=== PATIENT | male | born 1935 | race Caucasian/White ===

== ENCOUNTER 2016-03-19 12:12 | Inpatient (IN) | payer OTHER ==
[~2016-03-19] VITALS: Ht 172.7 cm; Wt 50.9 kg
[~2016-03-19 12:12] MED LIST: CELEBREX200 MG GT; DIFLUCAN 440 MG/1 ML GT; DIOVAN HCT 11 TABLET GT; DOCU LIQUI50 MG/5 ML GT; FLUCONAZOLE100 MG GT; FLUCONAZOLE100 MG PO; HYDROCHLOROTH12.5 M3 GT; KEFLEX250 MG/5 M PO; KEFLEX500 MG PO; NEXIUM40 MG GT; PLAVIX75 MG GT; PREDNISONE1 MG/ML GT; SYMBICORT60 INHALAT IH; VENTOLIN HFA18 GM IH
[2016-03-19 13:31] LABS: EOSINOPHIL (%) 0.5 % (0-5); EOSINOPHIL COUNT 0.1 K/uL (0-0.3); HEMATOCRIT 31.7 % (38.0-50.0); IMMATURE GRANULOCYTE (%) 0.4 % (0.0-0.7); IMMATURE GRANULOCYTE COUNT 0.7 K/uL; LYMPHOCYTE COUNT 0.3 K/uL (1.0-2.8); MCH 30.1 PG (29.0-34.0); MCHC 33.8 G/DL (30.0-36.0); MCV 89.3 FL (86-99); MEAN PLAT.VOLUME 9.2 uM^3 (9.0-12.4); MONOCYTE (%) 3.4 % (3-12); MONOCYTE COUNT 0.6 K/uL (0-0.8); NEUTROPHIL COUNT 16.1 K/uL (1.8-6.4); PLATELET COUNT 247 K/uL (156-360); RBC DIS.WIDTH-SD 50.5 % (39-53); RED BLOOD COUNT 3.55 M/uL (4.00-5.50); WHITE BLOOD COUNT 17.2 K/uL (4.1-10.2)
[2016-03-19 13:41] LABS: CHLORIDE 101 mEq/L (99-109); POTASSIUM 4.5 mEq/L (3.7-5.4); SODIUM 136 mEq/L (136-147)
[2016-03-19 13:43] LABS: GLUCOSE 99 mg/dL (70-99)
[2016-03-19 13:45] LABS: ANION GAP 10 MEQ/L (2-14)
[2016-03-19 13:47] LABS: ALKALINE PHOSPHATASE 78 IU/L (3-129); GFR ESTIMATE (CALCULATED) > 59 mL/min/
[2016-03-19 13:51] LABS: UREA NITROGEN (BUN) 52 mg/dL (9-23)
[2016-03-19 14:08] LABS: TOTAL BILIRUBIN 1.3 mg/dL (0.0-1.0)
[2016-03-19 17:30] VITALS: BP 106/58
[2016-03-19 19:30] VITALS: BP 138/58
[2016-03-19 23:32] VITALS: BP 99/53
[2016-03-20 01:28] LABS: METH RESISTANT S AUREUS PCR POSITIVE (NEGATIVE)
[2016-03-20 01:31] LABS: PROBE CHECK PASS
[2016-03-20 03:35] VITALS: BP 98/52
[2016-03-20 07:01] VITALS: BP 98/58
[2016-03-20 07:12] LABS: HEMATOCRIT 29.4 % (38.0-50.0); MCH 30.1 PG (29.0-34.0); MCV 88.6 FL (86-99); PLATELET COUNT 202 K/uL (156-360); RBC DIS.WIDTH-CV 16.2 % (11.8-14.6); RBC DIS.WIDTH-SD 51.5 % (39-53); RED BLOOD COUNT 3.32 M/uL (4.00-5.50)
[2016-03-20 07:13] LABS: WHITE BLOOD COUNT 9.3 K/uL (4.1-10.2)
[2016-03-20 12:29] VITALS: BP 108/55
[2016-03-20 15:54] VITALS: BP 115/54
[2016-03-20 19:40] VITALS: BP 108/53
[2016-03-20 23:05] VITALS: BP 112/56
[2016-03-21 03:10] VITALS: BP 111/56
[2016-03-21 06:43] LABS: HEMATOCRIT 31.5 % (38.0-50.0); MCH 29.7 PG (29.0-34.0); MEAN PLAT.VOLUME 10.3 uM^3 (9.0-12.4); PLATELET COUNT 219 K/uL (156-360); RBC DIS.WIDTH-CV 16.4 % (11.8-14.6); RBC DIS.WIDTH-SD 53.9 % (39-53); WHITE BLOOD COUNT 11.4 K/uL (4.1-10.2)
[2016-03-21 06:59] LABS: EOSINOPHIL (%) 0.4 % (0-5); IMMATURE GRANULOCYTE (%) 0.4 % (0.0-0.7); IMMATURE GRANULOCYTE COUNT 0.1 K/uL; LYMPHOCYTE COUNT 0.4 K/uL (1.0-2.8); MONOCYTE COUNT 0.7 K/uL (0-0.8); NEUTROPHIL (%) 89.8 % (45-76); NEUTROPHIL COUNT 10.2 K/uL (1.8-6.4)
[2016-03-21 07:21] LABS: ANION GAP 10 MEQ/L (2-14); CHLORIDE 102 MEQ/L (99-109); GFR ESTIMATE (CALCULATED) > 59 mL/min/; GLUCOSE 93 mg/dL (70-99); POTASSIUM 4.4 MEQ/L (3.7-5.4); SAMPLE HEMOLYSIS CHECK 0; SAMPLE ICTERIC CHECK 0; SAMPLE LIPEMIA CHECK 0; SODIUM 139 MEQ/L (136-147); UREA NITROGEN (BUN) 37 mg/dL (9-23)
[2016-03-21 07:30] VITALS: BP 116/52
[2016-03-21 08:03] LABS: INTERNAL CONTROL VALID? YES
[2016-03-21 12:33] VITALS: BP 112/48
[2016-03-21 16:48] VITALS: BP 122/58
[2016-03-21 21:30] VITALS: BP 112/48
[2016-03-22] VITALS (8 sets, daily range): BP systolic 124–143; BP diastolic 54–67
[2016-03-23 04:16] VITALS: BP 141/70
[2016-03-23 04:57] LABS: HEMATOCRIT 36.2 % (38.0-50.0); MCH 30.5 PG (29.0-34.0); MCV 89.8 FL (86-99); MEAN PLAT.VOLUME 9.7 uM^3 (9.0-12.4); PLATELET COUNT 173 K/uL (156-360); RBC DIS.WIDTH-CV 16.1 % (11.8-14.6); RBC DIS.WIDTH-SD 51.7 % (39-53); RED BLOOD COUNT 4.03 M/uL (4.00-5.50); WHITE BLOOD COUNT 14.2 K/uL (4.1-10.2)
[2016-03-23 04:58] LABS: EOSINOPHIL (%) 0.4 % (0-5); EOSINOPHIL COUNT 0.1 K/uL (0-0.3); IMMATURE GRANULOCYTE (%) 0.5 % (0.0-0.7); IMMATURE GRANULOCYTE COUNT 0.7 K/uL; LYMPHOCYTE COUNT 0.6 K/uL (1.0-2.8); MONOCYTE (%) 2.8 % (3-12); MONOCYTE COUNT 0.4 K/uL (0-0.8); NEUTROPHIL COUNT 13.1 K/uL (1.8-6.4)
[2016-03-23 05:06] LABS: CHLORIDE 98 mEq/L (99-109); POTASSIUM 4.5 mEq/L (3.7-5.4)
[2016-03-23 05:08] LABS: GLUCOSE 135 mg/dL (70-99)
[2016-03-23 05:09] LABS: ANION GAP 6 MEQ/L (2-14)
[2016-03-23 05:10] LABS: SODIUM 132 mEq/L (136-147)
[2016-03-23 05:11] LABS: ALKALINE PHOSPHATASE 80 IU/L (3-129)
[2016-03-23 05:12] LABS: GFR ESTIMATE (CALCULATED) > 59 mL/min/
[2016-03-23 05:13] LABS: UREA NITROGEN (BUN) 25 mg/dL (9-23)
[2016-03-23 08:29] VITALS: BP 130/58
[2016-03-23 09:01] LABS: ADD MIUA? NO; BILIRUBIN NEGATIVE; BLOOD NEGATIVE; COLOR YELLOW ((YELLOW)); GLUCOSE (STRIP) NEGATIVE; KETONES NEGATIVE; LEUKOCYTES NEGATIVE; NITRITE NEGATIVE; PH, URINE 7.5 (5-8); PROTEIN (STRIP) TRACE; SPECIFIC GRAVITY 1.014 (1.000-1.030)
[2016-03-23 09:07] LABS: UCUL ADDED? NO
[2016-03-23 12:10] VITALS: BP 148/67
[2016-03-23 16:19] VITALS: BP 111/53
[2016-03-24] VITALS (7 sets, daily range): BP systolic 94–179; BP diastolic 53–74
[2016-03-24 06:27] LABS: EOSINOPHIL (%) 0.5 % (0-5); EOSINOPHIL COUNT 0.1 K/uL (0-0.3); HEMATOCRIT 35.8 % (38.0-50.0); IMMATURE GRANULOCYTE (%) 0.7 % (0.0-0.7); IMMATURE GRANULOCYTE COUNT 0.1 K/uL; LYMPHOCYTE COUNT 0.5 K/uL (1.0-2.8); MCH 29.7 PG (29.0-34.0); MCHC 33.2 G/DL (30.0-36.0); MCV 89.3 FL (86-99); MEAN PLAT.VOLUME 10.8 uM^3 (9.0-12.4); MONOCYTE (%) 4.6 % (3-12); MONOCYTE COUNT 0.7 K/uL (0-0.8); NEUTROPHIL (%) 90.5 % (45-76); NEUTROPHIL COUNT 13.2 K/uL (1.8-6.4); PLATELET COUNT 153 K/uL (156-360); RBC DIS.WIDTH-CV 15.9 % (11.8-14.6); RBC DIS.WIDTH-SD 51.9 % (39-53); RED BLOOD COUNT 4.01 M/uL (4.00-5.50); WHITE BLOOD COUNT 14.6 K/uL (4.1-10.2)
[2016-03-24 07:02] LABS: ALKALINE PHOSPHATASE 84 IU/L (3-129); ANION GAP 11 MEQ/L (2-14); CHLORIDE 96 MEQ/L (99-109); GFR ESTIMATE (CALCULATED) > 59 mL/min/; GLUCOSE 86 mg/dL (70-99); POTASSIUM 4.4 MEQ/L (3.7-5.4); SAMPLE HEMOLYSIS CHECK 0; SAMPLE ICTERIC CHECK 0; SAMPLE LIPEMIA CHECK 0; SODIUM 135 MEQ/L (136-147); TOTAL BILIRUBIN 0.9 MG/DL (0.0-1.0); UREA NITROGEN (BUN) 26 mg/dL (9-23)
[2016-03-25 00:34] VITALS: BP 117/56
[2016-03-25 05:33] LABS: EOSINOPHIL (%) 0.6 % (0-5); EOSINOPHIL COUNT 0.1 K/uL (0-0.3); HEMATOCRIT 33.1 % (38.0-50.0); IMMATURE GRANULOCYTE (%) 0.5 % (0.0-0.7); IMMATURE GRANULOCYTE COUNT 0.1 K/uL; LYMPHOCYTE COUNT 0.8 K/uL (1.0-2.8); MCH 30.3 PG (29.0-34.0); MCHC 33.8 G/DL (30.0-36.0); MCV 89.5 FL (86-99); MEAN PLAT.VOLUME 10.9 uM^3 (9.0-12.4); MONOCYTE (%) 4.6 % (3-12); MONOCYTE COUNT 0.5 K/uL (0-0.8); NEUTROPHIL (%) 87.1 % (45-76); NEUTROPHIL COUNT 9.6 K/uL (1.8-6.4); PLATELET COUNT 150 K/uL (156-360); RBC DIS.WIDTH-CV 15.9 % (11.8-14.6); RBC DIS.WIDTH-SD 52.1 % (39-53)
[2016-03-25 05:59] LABS: ALKALINE PHOSPHATASE 83 IU/L (3-129); ANION GAP 7 MEQ/L (2-14); CHLORIDE 95 MEQ/L (99-109); GFR ESTIMATE (CALCULATED) > 59 mL/min/; GLUCOSE 80 mg/dL (70-99); POTASSIUM 4.6 MEQ/L (3.7-5.4); SAMPLE HEMOLYSIS CHECK 0; SAMPLE ICTERIC CHECK 0; SAMPLE LIPEMIA CHECK 0; SODIUM 131 MEQ/L (136-147); TOTAL BILIRUBIN 0.9 MG/DL (0.0-1.0); UREA NITROGEN (BUN) 26 mg/dL (9-23)
[2016-03-25 07:49] VITALS: BP 112/53
[2016-03-25 16:34] VITALS: BP 109/55
[2016-03-25 23:42] VITALS: BP 152/67
[2016-03-26 07:49] VITALS: BP 128/60
[2016-03-26 08:58] LABS: HEMATOCRIT 35.9 % (38.0-50.0); MCH 29.7 PG (29.0-34.0); MCHC 32.9 G/DL (30.0-36.0); MCV 90.4 FL (86-99); MEAN PLAT.VOLUME 10.7 uM^3 (9.0-12.4); PLATELET COUNT 162 K/uL (156-360); RBC DIS.WIDTH-CV 15.9 % (11.8-14.6); RBC DIS.WIDTH-SD 53.1 % (39-53); RED BLOOD COUNT 3.97 M/uL (4.00-5.50); WHITE BLOOD COUNT 10.9 K/uL (4.1-10.2)
[2016-03-26 09:17] LABS: ANION GAP 7 MEQ/L (2-14); CHLORIDE 97 MEQ/L (99-109); GFR ESTIMATE (CALCULATED) > 59 mL/min/; POTASSIUM 4.4 MEQ/L (3.7-5.4); SAMPLE HEMOLYSIS CHECK 0; SAMPLE ICTERIC CHECK 0; SAMPLE LIPEMIA CHECK 0; SODIUM 136 MEQ/L (136-147); UREA NITROGEN (BUN) 25 mg/dL (9-23)
[2016-03-26 09:24] LABS: GLUCOSE 108 mg/dL (70-99)
[2016-03-26 16:05] VITALS: BP 102/52
[2016-03-26 17:32] LABS: BASE EXCESS 9.2 mEq/L (-3 to +3); BICARBONATE 32.6 mEq/L (22-26); CARBOXY HGB 2.2 % (0-5); COMMENTS - BLOOD GASES C+; METHEMOGLOBIN 1.4 % (0-1.5); O2 FLOW 10 L/MIN; PCO2 39 mm Hg (35-45); PO2 82 mm Hg (80-100); SITE RR; pH 7.53 (7.35-7.45)
[2016-03-26 17:33] LABS: DEVICE CAM; FI02 40 %; TOTAL RESP RATE 22 resp/min
[2016-03-26 23:40] VITALS: BP 127/59
[2016-03-27 07:03] LABS: HEMATOCRIT 29.9 % (38.0-50.0); MCH 29.7 PG (29.0-34.0); MCHC 32.8 G/DL (30.0-36.0); MCV 90.6 FL (86-99); MEAN PLAT.VOLUME 10.3 uM^3 (9.0-12.4); PLATELET COUNT 149 K/uL (156-360); RBC DIS.WIDTH-CV 15.7 % (11.8-14.6); RBC DIS.WIDTH-SD 52.3 % (39-53); WHITE BLOOD COUNT 8.9 K/uL (4.1-10.2)
[2016-03-27 07:15] LABS: ANION GAP 5 MEQ/L (2-14); CHLORIDE 97 MEQ/L (99-109); GFR ESTIMATE (CALCULATED) > 59 mL/min/; GLUCOSE 101 mg/dL (70-99); SAMPLE HEMOLYSIS CHECK 0; SAMPLE ICTERIC CHECK 0; SAMPLE LIPEMIA CHECK 0; SODIUM 133 MEQ/L (136-147); UREA NITROGEN (BUN) 24 mg/dL (9-23)
[2016-03-27 07:48] VITALS: BP 130/60
[2016-03-27 08:19] LABS: ALKALINE PHOSPHATASE 73 IU/L (3-129); DIRECT BILIRUBIN 0.3 mg/dL (0.0-0.3); TOTAL BILIRUBIN 0.8 MG/DL (0.0-1.0)
[2016-03-27 15:11] VITALS: BP 101/52
[2016-03-28 00:34] VITALS: BP 129/77
[2016-03-28 05:47] LABS: EOSINOPHIL COUNT 0.1 K/uL (0-0.3); HEMATOCRIT 33.3 % (38.0-50.0); IMMATURE GRANULOCYTE (%) 0.4 % (0.0-0.7); LYMPHOCYTE COUNT 0.7 K/uL (1.0-2.8); MCV 90.7 FL (86-99); MEAN PLAT.VOLUME 10.2 uM^3 (9.0-12.4); MONOCYTE (%) 9.1 % (3-12); MONOCYTE COUNT 0.8 K/uL (0-0.8); NEUTROPHIL (%) 81.3 % (45-76); NEUTROPHIL COUNT 6.8 K/uL (1.8-6.4); PLATELET COUNT 169 K/uL (156-360); RBC DIS.WIDTH-CV 15.6 % (11.8-14.6); RBC DIS.WIDTH-SD 52.1 % (39-53); RED BLOOD COUNT 3.67 M/uL (4.00-5.50); WHITE BLOOD COUNT 8.4 K/uL (4.1-10.2)
[2016-03-28 06:43] LABS: ALKALINE PHOSPHATASE 74 IU/L (3-129); ANION GAP 2 MEQ/L (2-14); CHLORIDE 95 MEQ/L (99-109); GFR ESTIMATE (CALCULATED) > 59 mL/min/; GLUCOSE 82 mg/dL (70-99); POTASSIUM 4.3 MEQ/L (3.7-5.4); SAMPLE HEMOLYSIS CHECK 0; SAMPLE ICTERIC CHECK 0; SAMPLE LIPEMIA CHECK 0; SODIUM 132 MEQ/L (136-147); TOTAL BILIRUBIN 0.8 MG/DL (0.0-1.0); UREA NITROGEN (BUN) 21 mg/dL (9-23)
[2016-03-28 06:47] LABS: VANCOMYCIN, TROUGH 13.3 MCG/ML (10-20)
[2016-03-28 07:46] VITALS: BP 131/62
[2016-03-28 16:15] VITALS: BP 108/52
[2016-03-29 00:30] VITALS: BP 137/97
[2016-03-29 05:02] LABS: HEMATOCRIT 33.4 % (38.0-50.0); MCH 29.3 PG (29.0-34.0); MCHC 32.6 G/DL (30.0-36.0); MCV 89.8 FL (86-99); PLATELET COUNT 209 K/uL (156-360); RBC DIS.WIDTH-CV 15.1 % (11.8-14.6); RBC DIS.WIDTH-SD 48.2 % (39-53); RED BLOOD COUNT 3.72 M/uL (4.00-5.50); WHITE BLOOD COUNT 9.9 K/uL (4.1-10.2)
[2016-03-29 05:10] LABS: CHLORIDE 95 mEq/L (99-109); POTASSIUM 4.6 mEq/L (3.7-5.4); SODIUM 133 mEq/L (136-147)
[2016-03-29 05:11] LABS: GLUCOSE 85 mg/dL (70-99)
[2016-03-29 05:13] LABS: ANION GAP 8 MEQ/L (2-14)
[2016-03-29 05:15] LABS: GFR ESTIMATE (CALCULATED) > 59 mL/min/
[2016-03-29 05:16] LABS: UREA NITROGEN (BUN) 21 mg/dL (9-23)
[2016-03-29 07:50] VITALS: BP 138/72
[2016-03-29 16:06] VITALS: BP 120/56
[2016-03-29 23:27] VITALS: BP 128/68
[2016-03-30 08:22] VITALS: BP 98/48
[2016-03-30 16:30] VITALS: BP 99/52
[2016-03-30 23:30] VITALS: BP 141/63
[2016-03-31] VITALS (10 sets, daily range): BP systolic 93–119; BP diastolic 39–56
[2016-04-01] VITALS (23 sets, daily range): BP systolic 67–124; BP diastolic 35–85
[2016-04-02 03:48] VITALS: BP 110/62
[2016-04-02 07:32] LABS: HEMATOCRIT 26.5 % (38.0-50.0); MCH 29.7 PG (29.0-34.0); MCHC 33.2 G/DL (30.0-36.0); MCV 89.5 FL (86-99); MEAN PLAT.VOLUME 10.4 uM^3 (9.0-12.4); RBC DIS.WIDTH-CV 15.2 % (11.8-14.6); RBC DIS.WIDTH-SD 49.5 % (39-53); RED BLOOD COUNT 2.96 M/uL (4.00-5.50); WHITE BLOOD COUNT 6.9 K/uL (4.1-10.2)
[2016-04-02 07:33] VITALS: BP 122/60
[2016-04-02 07:33] LABS: PLATELET COUNT 272 K/uL (156-360)
[2016-04-02 07:41] LABS: ANION GAP 7 MEQ/L (2-14); CHLORIDE 93 MEQ/L (99-109); GFR ESTIMATE (CALCULATED) > 59 mL/min/; GLUCOSE 87 mg/dL (70-99); POTASSIUM 4.4 MEQ/L (3.7-5.4); SAMPLE HEMOLYSIS CHECK 0; SAMPLE ICTERIC CHECK 0; SAMPLE LIPEMIA CHECK 0; SODIUM 134 MEQ/L (136-147); UREA NITROGEN (BUN) 26 mg/dL (9-23)
[2016-04-02 11:30] VITALS: BP 118/60
[2016-04-02 16:27] VITALS: BP 121/62
[2016-04-02 20:15] VITALS: BP 121/55
[2016-04-03] VITALS (7 sets, daily range): BP systolic 97–122; BP diastolic 53–64
[2016-04-04 04:23] VITALS: BP 125/60
[2016-04-04 07:35] VITALS: BP 141/82
[2016-04-04 10:49] VITALS: BP 118/56
[2016-04-04 15:21] VITALS: BP 129/77
[2016-04-04 19:41] VITALS: BP 105/54
[2016-04-04 23:54] VITALS: BP 110/54
[2016-04-05 03:54] VITALS: BP 107/54
[2016-04-05 07:48] VITALS: BP 134/59
[2016-04-05 08:31] LABS: HEMATOCRIT 29.9 % (38.0-50.0); MCH 29.3 PG (29.0-34.0); MCHC 32.4 G/DL (30.0-36.0); MCV 90.3 FL (86-99); MEAN PLAT.VOLUME 10.2 uM^3 (9.0-12.4); PLATELET COUNT 302 K/uL (156-360); RBC DIS.WIDTH-CV 15.3 % (11.8-14.6); RBC DIS.WIDTH-SD 50.4 % (39-53); RED BLOOD COUNT 3.31 M/uL (4.00-5.50); WHITE BLOOD COUNT 8.1 K/uL (4.1-10.2)
[2016-04-05 09:09] LABS: ANION GAP 2 MEQ/L (2-14); CHLORIDE 95 MEQ/L (99-109); POTASSIUM 4.9 MEQ/L (3.7-5.4); SAMPLE HEMOLYSIS CHECK 0; SAMPLE ICTERIC CHECK 0; SAMPLE LIPEMIA CHECK 0; SODIUM 131 MEQ/L (136-147)
[2016-04-05 09:17] LABS: GFR ESTIMATE (CALCULATED) > 59 mL/min/; GLUCOSE 145 mg/dL (70-99); UREA NITROGEN (BUN) 19 mg/dL (9-23)
[2016-04-05 11:06] LABS: C DIFF TOXIN NEGATIVE (NEGATIVE); PROBE CHECK PASS; SPECIMEN PROCESSING CONTROL PASS
[2016-04-05 11:50] VITALS: BP 116/60
[2016-04-05 15:00] VITALS: BP 129/60
[2016-04-05 16:08] LABS: FERRITIN 418 NG/ML (22-322); IRON 53 MCG/DL (35-150)
[2016-04-05 19:42] VITALS: BP 109/55
[2016-04-05 23:37] VITALS: BP 108/58
[2016-04-06 04:00] VITALS: BP 104/54
[2016-04-06 07:51] VITALS: BP 106/56
[2016-04-06 07:52] VITALS: BP 106/56
[2016-04-06 07:53] LABS: HEMATOCRIT 25.6 % (38.0-50.0); MCHC 33.6 G/DL (30.0-36.0); MCV 89.2 FL (86-99); MEAN PLAT.VOLUME 9.7 uM^3 (9.0-12.4); PLATELET COUNT 280 K/uL (156-360); RBC DIS.WIDTH-CV 15.3 % (11.8-14.6); RBC DIS.WIDTH-SD 49.8 % (39-53); RED BLOOD COUNT 2.87 M/uL (4.00-5.50); WHITE BLOOD COUNT 6.9 K/uL (4.1-10.2)
[2016-04-06 08:15] LABS: ANION GAP 5 MEQ/L (2-14); CHLORIDE 95 MEQ/L (99-109); GFR ESTIMATE (CALCULATED) > 59 mL/min/; POTASSIUM 4.6 MEQ/L (3.7-5.4); SAMPLE HEMOLYSIS CHECK 0; SAMPLE ICTERIC CHECK 0; SAMPLE LIPEMIA CHECK 0; SODIUM 132 MEQ/L (136-147); UREA NITROGEN (BUN) 20 mg/dL (9-23)
[2016-04-06 08:16] LABS: GLUCOSE 80 mg/dL (70-99)
[2016-04-06 11:25] VITALS: BP 98/60
[2016-04-06] MEDS ORDERED: LINEZOLID600 MG PO (12:41)
[2016-04-06] MEDS ORDERED: SANTYL30 GM TP (12:41)
[2016-04-06] MEDS ORDERED: BACTROBAN OINTM22 GM TP (12:41)
[2016-04-06 23:56] VITALS: BP 113/53
[2016-04-07 07:46] VITALS: BP 110/54
[2016-04-07 15:54] VITALS: BP 106/52
[2016-04-07 23:32] VITALS: BP 108/55
[2016-04-08 07:59] VITALS: BP 108/60
== END 2016-04-08 14:49 | DRG 4 ==
LOC: EME 12:12 → EDOF 15:05 → 4EAST 15:05 → 4WEST 15:05 → 3EAST 15:05 → 4EAST 17:21 → 3EAST 03-22 22:59 → 4WEST 03-31 15:56 → 5SOUTH 04-01 20:52
PROVIDERS: Emergency Medicine; Hospitalist; Internal Medicine; Physician Assistant; Physician Assistant Medical
PROC: 0B110F4 Bypass Trachea to Cutaneous with Tracheostomy Device, Open Approach (ICD-10-PCS; principal; 2016-03-31)
DX: J44.0 Chronic obstructive pulmonary disease with (acute) lower respiratory infection (principal); J69.0 Pneumonitis due to inhalation of food and vomit; J15.212 Pneumonia due to Methicillin resistant Staphylococcus aureus; T17.990A Other foreign object in respiratory tract, part unspecified in causing asphyxiation, initial encounter; J96.21 Acute and chronic respiratory failure with hypoxia; B37.0 Candidal stomatitis; E43 Unspecified severe protein-calorie malnutrition; J44.1 Chronic obstructive pulmonary disease with (acute) exacerbation; E87.1 Hypo-osmolality and hyponatremia; I70.262 Atherosclerosis of native arteries of extremities with gangrene, left leg; I70.235 Atherosclerosis of native arteries of right leg with ulceration of other part of foot; L97.529 Non-pressure chronic ulcer of other part of left foot with unspecified severity; L97.519 Non-pressure chronic ulcer of other part of right foot with unspecified severity; I10 Essential (primary) hypertension; R13.10 Dysphagia, unspecified; L89.150 Pressure ulcer of sacral region, unstageable; J38.00 Paralysis of vocal cords and larynx, unspecified; G89.29 Other chronic pain; D64.9 Anemia, unspecified; Z68.1 Body mass index [BMI] 19.9 or less, adult; Z99.81 Dependence on supplemental oxygen; Z93.1 Gastrostomy status; Z79.02 Long term (current) use of antithrombotics/antiplatelets; Z79.52 Long term (current) use of systemic steroids; Z88.0 Allergy status to penicillin; Z91.040 Latex allergy status; Z95.820 Peripheral vascular angioplasty status with implants and grafts; I25.2 Old myocardial infarction; Z85.819 Personal history of malignant neoplasm of unspecified site of lip, oral cavity, and pharynx; Z66 Do not resuscitate; S51.812A Laceration without foreign body of left forearm, initial encounter; S81.812A Laceration without foreign body, left lower leg, initial encounter; X58.XXXA Exposure to other specified factors, initial encounter; K59.00 Constipation, unspecified; Z87.891 Personal history of nicotine dependence
CPT/HCPCS: 31720; 36600; 71010; 71275; 80048; 80053; 80076; 80202; 81003; 82607; 82728; 82746; 82803; 83540; 83605; 84466; 85025; 85027; 87040; 87070; 87077; 87106; 87147; 87186; 87205; 87449; 87493; 87641; 92523 GN; 93005; 94010; 94640; 94640 76; 94799; 97530 GO; 97530 GP; 99202; 99281; 99284; J0456; J0692; J1100; J1170; J1644; J1650; J2185; J2250; J3010; J3370; J7030; J7050; J7070; J7512

== ENCOUNTER 2016-04-17 03:46 | Inpatient (IN) | payer OTHER ==
[~2016-04-17] VITALS: Ht 172.7 cm; Wt 50.7 kg
[~2016-04-17 03:46] MED LIST changes: +BACTROBAN OINTM22 GM TP; +LINEZOLID600 MG PO; +SANTYL30 GM TP
[2016-04-17 04:47] LABS: HEMATOCRIT 29.5 % (38.0-50.0); MCH 29.9 PG (29.0-34.0); MCHC 33.2 G/DL (30.0-36.0); MCV 89.9 FL (86-99); PLATELET COUNT 268 K/uL (156-360); RBC DIS.WIDTH-CV 16.2 % (11.8-14.6); RBC DIS.WIDTH-SD 51.2 % (39-53); RED BLOOD COUNT 3.28 M/uL (4.00-5.50); WHITE BLOOD COUNT 14.4 K/uL (4.1-10.2)
[2016-04-17 04:54] LABS: CHLORIDE 95 mEq/L (99-109); POTASSIUM 5.1 mEq/L (3.7-5.4); SODIUM 128 mEq/L (136-147)
[2016-04-17 04:56] LABS: GLUCOSE 116 mg/dL (70-99)
[2016-04-17 04:58] LABS: ANION GAP 9 MEQ/L (2-14); TOTAL BILIRUBIN 0.7 mg/dL (0.0-1.0)
[2016-04-17 05:00] LABS: ALKALINE PHOSPHATASE 94 IU/L (3-129); GFR ESTIMATE (CALCULATED) > 59 mL/min/
[2016-04-17 05:01] LABS: UREA NITROGEN (BUN) 45 mg/dL (9-23)
[2016-04-17 05:03] LABS: LIPASE 52 U/L (1.0-51.0)
[2016-04-17] MEDS ORDERED: AMBIEN5 MG GT (06:25)
[2016-04-17] MEDS ORDERED: ATIVAN0.5 MG GT (06:26)
[2016-04-17 10:02] LABS: INFLUENZA A VIRAL ANTIGEN NEGATIVE; INFLUENZA B VIRAL ANTIGEN NEGATIVE
[2016-04-17 10:59] VITALS: BP 126/60
[2016-04-17 11:01] VITALS: BP 126/60
[2016-04-17] MEDS ORDERED: PULMICORT0.5 MG/21 IH (14:41)
[2016-04-17] MEDS ORDERED: PROVENTIL,2.5 MG/3 M IH (14:41)
[2016-04-17] MEDS ORDERED: BACTROBAN OINTM22 GM TP (14:43)
[2016-04-17] MEDS ORDERED: HYDROPHOR228 GM TP (14:44)
[2016-04-17] MEDS ORDERED: FEOSOL325 MG GT (14:45)
[2016-04-17] MEDS ORDERED: MELATONIN1 MG GT (14:45)
[2016-04-17] MEDS ORDERED: LOVENOX40 MG/0.4 SC (14:46)
[2016-04-17] MEDS ORDERED: ZYVOX600 MG GT (14:47)
[2016-04-17] MEDS ORDERED: SODIUM CHLORIDE1 G1 PO (14:52)
[2016-04-17 14:56] VITALS: BP 132/60
[2016-04-17 16:41] LABS: ADD MIUA? YES; BILIRUBIN NEGATIVE; BLOOD SMALL; COLOR YELLOW ((YELLOW)); GLUCOSE (STRIP) NEGATIVE; KETONES NEGATIVE; LEUKOCYTES NEGATIVE; NITRITE NEGATIVE; PROTEIN (STRIP) TRACE; SPECIFIC GRAVITY 1.013 (1.000-1.030); UROBILINOGEN 0.2 MG/DL (0.2-1.0)
[2016-04-17 16:56] LABS: BACTERIA NONE SEEN; CASTS NONE SEEN /LPF; CRYSTALS NONE SEEN; EPITHELIAL CELLS RARE; MUCUS NONE SEEN; PATHOLOGICAL CAST NONE SEEN; RED BLOOD CELLS 15-20 /HPF (0-5); SMALL ROUND CELL NONE SEEN; UCUL ADDED? NO; WHITE BLOOD CELLS 0-5 /HPF (0-5); YEAST-LIKE CELL NONE SEEN
[2016-04-17 18:57] LABS: METH RESISTANT S AUREUS PCR NEGATIVE (NEGATIVE); PROBE CHECK PASS; SPECIMEN PROCESSING CONTROL PASS
[2016-04-17 19:20] VITALS: BP 118/63
[2016-04-17 22:55] VITALS: BP 145/59
[2016-04-18 04:46] VITALS: BP 116/53
[2016-04-18 05:51] LABS: HEMATOCRIT 24.3 % (38.0-50.0); MCHC 32.9 G/DL (30.0-36.0); RBC DIS.WIDTH-CV 16.7 % (11.8-14.6); RBC DIS.WIDTH-SD 54.5 % (39-53); RED BLOOD COUNT 2.67 M/uL (4.00-5.50); WHITE BLOOD COUNT 16.9 K/uL (4.1-10.2)
[2016-04-18 06:20] LABS: ANION GAP 5 MEQ/L (2-14); CHLORIDE 98 MEQ/L (99-109); GFR ESTIMATE (CALCULATED) > 59 mL/min/; GLUCOSE 115 mg/dL (70-99); POTASSIUM 4.8 MEQ/L (3.7-5.4); SAMPLE HEMOLYSIS CHECK 0; SAMPLE ICTERIC CHECK 0; SAMPLE LIPEMIA CHECK 0; SODIUM 131 MEQ/L (136-147); UREA NITROGEN (BUN) 34 mg/dL (9-23)
[2016-04-18 06:36] LABS: HEMATOLOGY COMMENT 1 REV; USER ID SLU
[2016-04-18 06:37] LABS: EOSINOPHIL (%) 0.8 % (0-5); EOSINOPHIL COUNT 0.1 K/uL (0-0.3); IMMATURE GRANULOCYTE (%) 0.4 % (0.0-0.7); IMMATURE GRANULOCYTE COUNT 0.1 K/uL; LYMPHOCYTE COUNT 0.5 K/uL (1.0-2.8); MONOCYTE (%) 6.9 % (3-12); MONOCYTE COUNT 1.2 K/uL (0-0.8); NEUTROPHIL (%) 88.7 % (45-76); PLATELET COUNT UNABLE TO REPORT K/uL (156-360)
[2016-04-18 07:20] VITALS: BP 125/56
[2016-04-18 08:41] LABS: INTER. NORMALIZED RATIO 1.2; PROTHROMBIN TIME 12.3 (9.2-11.2)
[2016-04-18 09:29] LABS: INTERNAL CONTROL VALID? YES
[2016-04-18 11:20] VITALS: BP 95/45
[2016-04-18 11:28] LABS: POINT-OF-CARE METER ID UU14174225
[2016-04-18 18:33] LABS: POINT-OF-CARE METER ID UU14174225
[2016-04-18 19:39] VITALS: BP 100/52
[2016-04-18 23:33] VITALS: BP 114/59
[2016-04-19 03:59] VITALS: BP 100/53
[2016-04-19 07:33] VITALS: BP 117/56
[2016-04-19 11:51] VITALS: BP 126/49
[2016-04-19 15:36] VITALS: BP 123/47
[2016-04-20 00:21] VITALS: BP 110/53
[2016-04-20 08:15] VITALS: BP 110/60
[2016-04-20 09:16] LABS: HEMATOCRIT 25.3 % (38.0-50.0); MCHC 33.2 G/DL (30.0-36.0); MCV 90.4 FL (86-99); MEAN PLAT.VOLUME 9.8 uM^3 (9.0-12.4); PLATELET COUNT 182 K/uL (156-360); RBC DIS.WIDTH-CV 16.7 % (11.8-14.6); RBC DIS.WIDTH-SD 54.2 % (39-53)
[2016-04-20 09:23] LABS: ANION GAP 5 MEQ/L (2-14); CHLORIDE 94 MEQ/L (99-109); GFR ESTIMATE (CALCULATED) > 59 mL/min/; GLUCOSE 91 mg/dL (70-99); POTASSIUM 4.9 MEQ/L (3.7-5.4); SAMPLE HEMOLYSIS CHECK 0; SAMPLE ICTERIC CHECK 0; SAMPLE LIPEMIA CHECK 0; SODIUM 130 MEQ/L (136-147); UREA NITROGEN (BUN) 28 mg/dL (9-23)
[2016-04-20 09:45] LABS: BASE EXCESS 6.8 mEq/L (-3 to +3); BICARBONATE 31.3 mEq/L (22-26); CARBOXY HGB 2.1 % (0-5); METHEMOGLOBIN 1.5 % (0-1.5); PO2 67 mm Hg (80-100); pH 7.46 (7.35-7.45)
[2016-04-20 09:46] LABS: COMMENTS - BLOOD GASES A+C+; DEVICE TP; FI02 50 %; O2 FLOW 12 L/MIN; PCO2 44 mm Hg (35-45); SITE LR
[2016-04-20 20:13] VITALS: BP 118/57
[2016-04-21] VITALS: BP 125/86
[2016-04-21 07:36] VITALS: BP 108/54
[2016-04-21 08:40] LABS: HEMATOCRIT 28.5 % (38.0-50.0); MCH 29.4 PG (29.0-34.0); MCHC 32.3 G/DL (30.0-36.0); MCV 91.1 FL (86-99); MEAN PLAT.VOLUME 9.7 uM^3 (9.0-12.4); PLATELET COUNT 219 K/uL (156-360); RBC DIS.WIDTH-CV 16.8 % (11.8-14.6); RBC DIS.WIDTH-SD 55.6 % (39-53); RED BLOOD COUNT 3.13 M/uL (4.00-5.50); WHITE BLOOD COUNT 9.1 K/uL (4.1-10.2)
[2016-04-21 15:49] VITALS: BP 116/59
[2016-04-21 23:33] VITALS: BP 118/63
[2016-04-22 00:18] LABS: POINT-OF-CARE USER ID BHSKTD
[2016-04-22 06:16] LABS: MCH 29.9 PG (29.0-34.0); MCHC 33.2 G/DL (30.0-36.0); MCV 89.9 FL (86-99); MEAN PLAT.VOLUME 9.4 uM^3 (9.0-12.4); PLATELET COUNT 206 K/uL (156-360); RBC DIS.WIDTH-CV 16.6 % (11.8-14.6); RBC DIS.WIDTH-SD 54.3 % (39-53); RED BLOOD COUNT 2.78 M/uL (4.00-5.50); WHITE BLOOD COUNT 9.1 K/uL (4.1-10.2)
[2016-04-22 06:25] LABS: POINT-OF-CARE USER ID BHSKTD
[2016-04-22 06:41] LABS: EOSINOPHIL COUNT 0.2 K/uL (0-0.3); IMMATURE GRANULOCYTE (%) 1.2 % (0.0-0.7); IMMATURE GRANULOCYTE COUNT 0.1 K/uL; MONOCYTE (%) 11.5 % (3-12); NEUTROPHIL (%) 73.6 % (45-76); NEUTROPHIL COUNT 6.7 K/uL (1.8-6.4)
[2016-04-22 06:43] LABS: ANION GAP 6 MEQ/L (2-14); CHLORIDE 93 MEQ/L (99-109); GFR ESTIMATE (CALCULATED) > 59 mL/min/; GLUCOSE 91 mg/dL (70-99); POTASSIUM 4.6 MEQ/L (3.7-5.4); SAMPLE HEMOLYSIS CHECK 0; SAMPLE ICTERIC CHECK 0; SAMPLE LIPEMIA CHECK 0; SODIUM 130 MEQ/L (136-147); UREA NITROGEN (BUN) 23 mg/dL (9-23)
[2016-04-22 07:41] VITALS: BP 106/52
[2016-04-22 16:02] VITALS: BP 110/56
[2016-04-22 17:13] LABS: D-DIMER ELISA 2.61 mg/L FEU (< 0.57)
[2016-04-23] VITALS: BP 114/58
[2016-04-23 06:44] LABS: HEMATOCRIT 25.8 % (38.0-50.0); MCH 29.8 PG (29.0-34.0); MCHC 32.6 G/DL (30.0-36.0); MCV 91.5 FL (86-99); MEAN PLAT.VOLUME 9.8 uM^3 (9.0-12.4); PLATELET COUNT 229 K/uL (156-360); RBC DIS.WIDTH-CV 16.8 % (11.8-14.6); RBC DIS.WIDTH-SD 55.3 % (39-53); RED BLOOD COUNT 2.82 M/uL (4.00-5.50); WHITE BLOOD COUNT 7.8 K/uL (4.1-10.2)
[2016-04-23 06:54] LABS: EOSINOPHIL (%) 2.1 % (0-5); EOSINOPHIL COUNT 0.2 K/uL (0-0.3); IMMATURE GRANULOCYTE (%) 1.8 % (0.0-0.7); IMMATURE GRANULOCYTE COUNT 0.1 K/uL; LYMPHOCYTE COUNT 0.8 K/uL (1.0-2.8); NEUTROPHIL (%) 72.9 % (45-76); NEUTROPHIL COUNT 5.7 K/uL (1.8-6.4)
[2016-04-23 07:10] LABS: ALKALINE PHOSPHATASE 75 IU/L (3-129); ANION GAP 5 MEQ/L (2-14); CHLORIDE 95 MEQ/L (99-109); GFR ESTIMATE (CALCULATED) > 59 mL/min/; GLUCOSE 101 mg/dL (70-99); POTASSIUM 5.4 MEQ/L (3.7-5.4); SAMPLE HEMOLYSIS CHECK 0; SAMPLE ICTERIC CHECK 0; SAMPLE LIPEMIA CHECK 0; SODIUM 131 MEQ/L (136-147); TOTAL BILIRUBIN 0.4 MG/DL (0.0-1.0); UREA NITROGEN (BUN) 23 mg/dL (9-23)
[2016-04-23 07:51] VITALS: BP 114/56
[2016-04-23 15:44] VITALS: BP 120/58
[2016-04-24] VITALS: BP 133/58
[2016-04-24 07:39] VITALS: BP 136/61
[2016-04-24 09:10] LABS: HEMATOCRIT 26.9 % (38.0-50.0); MCH 29.9 PG (29.0-34.0); MCHC 32.7 G/DL (30.0-36.0); MCV 91.5 FL (86-99); PLATELET COUNT 283 K/uL (156-360); RBC DIS.WIDTH-CV 17.3 % (11.8-14.6); RBC DIS.WIDTH-SD 56.5 % (39-53); RED BLOOD COUNT 2.94 M/uL (4.00-5.50); WHITE BLOOD COUNT 9.1 K/uL (4.1-10.2)
[2016-04-24 09:45] LABS: ANION GAP 7 MEQ/L (2-14); CHLORIDE 95 MEQ/L (99-109); GFR ESTIMATE (CALCULATED) > 59 mL/min/; GLUCOSE 92 mg/dL (70-99); POTASSIUM 4.8 MEQ/L (3.7-5.4); SAMPLE HEMOLYSIS CHECK 0; SAMPLE ICTERIC CHECK 0; SAMPLE LIPEMIA CHECK 0; SODIUM 131 MEQ/L (136-147); UREA NITROGEN (BUN) 23 mg/dL (9-23)
[2016-04-24 15:44] VITALS: BP 111/56
[2016-04-25 00:28] VITALS: BP 120/62
[2016-04-25 08:04] VITALS: BP 106/56
[2016-04-25 09:25] LABS: HEMATOCRIT 28.5 % (38.0-50.0); MCH 29.8 PG (29.0-34.0); MCHC 32.3 G/DL (30.0-36.0); MCV 92.2 FL (86-99); MEAN PLAT.VOLUME 9.6 uM^3 (9.0-12.4); PLATELET COUNT 292 K/uL (156-360); RBC DIS.WIDTH-CV 17.4 % (11.8-14.6); RBC DIS.WIDTH-SD 58.3 % (39-53); RED BLOOD COUNT 3.09 M/uL (4.00-5.50); WHITE BLOOD COUNT 8.9 K/uL (4.1-10.2)
[2016-04-25 09:47] LABS: ANION GAP 5 MEQ/L (2-14); CHLORIDE 94 MEQ/L (99-109); GFR ESTIMATE (CALCULATED) > 59 mL/min/; GLUCOSE 93 mg/dL (70-99); POTASSIUM 4.5 MEQ/L (3.7-5.4); SAMPLE HEMOLYSIS CHECK 1; SAMPLE ICTERIC CHECK 0; SAMPLE LIPEMIA CHECK 0; SODIUM 129 MEQ/L (136-147); UREA NITROGEN (BUN) 24 mg/dL (9-23)
[2016-04-25 15:11] VITALS: BP 108/64
[2016-04-25 23:51] VITALS: BP 111/58
[2016-04-26 07:23] LABS: VANCOMYCIN, TROUGH 28.5 MCG/ML (10-20)
[2016-04-26 07:41] VITALS: BP 125/77
[2016-04-26 07:56] LABS: HEMATOCRIT 27.1 % (38.0-50.0); MCH 30.5 PG (29.0-34.0); MCHC 33.2 G/DL (30.0-36.0); MCV 91.9 FL (86-99); PLATELET COUNT 275 K/uL (156-360); RBC DIS.WIDTH-CV 17.2 % (11.8-14.6); RBC DIS.WIDTH-SD 57.9 % (39-53); RED BLOOD COUNT 2.95 M/uL (4.00-5.50); WHITE BLOOD COUNT 7.7 K/uL (4.1-10.2)
[2016-04-26 08:07] LABS: ANION GAP 5 MEQ/L (2-14); CHLORIDE 97 MEQ/L (99-109); GFR ESTIMATE (CALCULATED) > 59 mL/min/; GLUCOSE 91 mg/dL (70-99); POTASSIUM 4.6 MEQ/L (3.7-5.4); SODIUM 132 MEQ/L (136-147); UREA NITROGEN (BUN) 24 mg/dL (9-23)
[2016-04-26 15:23] VITALS: BP 124/56
[2016-04-26] MEDS ORDERED: LOVENOX60 MG/0.6 SC (15:59)
[2016-04-26] MEDS ORDERED: PREDNISONE1 MG/ML GT (15:59)
[2016-04-26 23:40] VITALS: BP 117/57
[2016-04-27 08:00] VITALS: BP 115/54
[2016-04-27 14:13] LABS: ADD MIUA? YES; BILIRUBIN NEGATIVE; BLOOD NEGATIVE; COLOR YELLOW ((YELLOW)); GLUCOSE (STRIP) NEGATIVE; KETONES NEGATIVE; LEUKOCYTES NEGATIVE; NITRITE NEGATIVE; PROTEIN (STRIP) NEGATIVE; SPECIFIC GRAVITY 1.011 (1.000-1.030); UROBILINOGEN 0.2 MG/DL (0.2-1.0)
[2016-04-27] MEDS ORDERED: VANCOMYCIN1 GM/150 M IV (14:56)
[2016-04-27] MEDS ORDERED: MAXIPIME2 GM IV (14:58)
[2016-04-27 15:31] LABS: BACTERIA RARE /HPF; EPITHELIAL CELLS NONE SEEN /HPF; MUCUS TRACE /LPF; RED BLOOD CELLS TNTC /HPF (0-5); WHITE BLOOD CELLS 0-5 /HPF (0-5)
[2016-04-27] MEDS ORDERED: ATIVAN0.5 MG GT (15:43)
== END 2016-04-27 16:42 | DRG 177 ==
LOC: EME → EDBD 03:46 → EDOF 06:30 → 5SOUTH 06:30 → EDOF 06:36 → 5SOUTH 08:00
PROVIDERS: Emergency Medicine; Hospitalist; Internal Medicine; Physician Assistant
PROC: 02HV33Z Insertion of Infusion Device into Superior Vena Cava, Percutaneous Approach (ICD-10-PCS; principal; 2016-04-27)
DX: J69.0 Pneumonitis due to inhalation of food and vomit (principal); J96.21 Acute and chronic respiratory failure with hypoxia; I33.0 Acute and subacute infective endocarditis; L89.894 Pressure ulcer of other site, stage 4; Z93.0 Tracheostomy status; J90 Pleural effusion, not elsewhere classified; E46 Unspecified protein-calorie malnutrition; R64 Cachexia; J44.0 Chronic obstructive pulmonary disease with (acute) lower respiratory infection; E87.1 Hypo-osmolality and hyponatremia; J44.1 Chronic obstructive pulmonary disease with (acute) exacerbation; Z68.1 Body mass index [BMI] 19.9 or less, adult; D64.9 Anemia, unspecified; Z85.819 Personal history of malignant neoplasm of unspecified site of lip, oral cavity, and pharynx; I73.9 Peripheral vascular disease, unspecified; I10 Essential (primary) hypertension; Z93.1 Gastrostomy status; I51.3 Intracardiac thrombosis, not elsewhere classified; Z66 Do not resuscitate; J38.02 Paralysis of vocal cords and larynx, bilateral; M19.90 Unspecified osteoarthritis, unspecified site; J15.1 Pneumonia due to Pseudomonas; Y95 Nosocomial condition; I27.2 Other secondary pulmonary hypertension; Z87.891 Personal history of nicotine dependence; R13.10 Dysphagia, unspecified; E83.51 Hypocalcemia
CPT/HCPCS: 36600; 71010; 71030; 71275; 76937; 80048; 80053; 80202; 81003; 82803; 82948; 83605; 83690; 85025; 85027; 85049; 85379; 85610; 85730; 87040; 87070; 87077; 87081; 87186; 87205; 87449; 87502; 87641; 93005; 93306; 93308; 93971; 94640; 94640 76; 94667; 94760; 94799; 99202; 99281; 99285; C9113; J0456; J0692; J0696; J1644; J1650; J2270; J2405; J3370; J7030; J7050; J7512; J7644

== ENCOUNTER → 2016-05-20 | Outpatient (CLI) | payer OTHER ==
[~2016-05-20] MED LIST changes: +ADULT TUSS100 MG/5 M PO; +AMBIEN5 MG GT; +AQUAPHOR OINTM105 GM TP; +ASCORBIC ACID500 M3 GT; +ATIVAN0.5 MG GT; +BUDESONIDE0.5 MG/2 M IH; +CEFEPIME HCL1 GM IV; +COLACE10 MG/ML GT; +DUONEB 2.5-0.5 M3 ML AEROSOL; +FEOSOL325 MG GT; +HYDROPHOR228 GM TP; +IRON325 M1 GT; +LOVENOX40 MG/0.4 SC; +LOVENOX60 MG/0.6 SC; +MAXIPIME2 GM IV; +MELATONIN1 MG GT; +MELATONIN5 M1 GT; +ORAZINC220 MG GT; +PREDNISONE10 MG GT; +PROSCAR5 MG GT; +PROTONIX40 M1 GT; +PROVENTIL,2.5 MG/3 M IH; +PULMICORT0.5 MG/21 IH; +SENEXON8.8 MG/5 M GT; +SILVASORB1.5 OZ TP; +SODIUM CHLORIDE1 G1 PO; +ULTRACET1 TABLET GT; +ULTRAM50 MG GT; +VANCOMYCIN HCL500 MG IV; +VANCOMYCIN1 GM/150 M IV; +ZITHROMAX500 MG GT; +ZOFRAN4 MG GT; +ZYVOX600 MG GT
== END | disposition designated cancer center or children's hospital (05) ==
LOC: EKG 11:00
DX: I35.1 Nonrheumatic aortic (valve) insufficiency (principal); I27.2 Other secondary pulmonary hypertension; I07.1 Rheumatic tricuspid insufficiency; I33.9 Acute and subacute endocarditis, unspecified; Z99.81 Dependence on supplemental oxygen
CPT/HCPCS: 93306

== ENCOUNTER 2016-05-25 08:54 | Inpatient (IN) | payer OTHER ==
[~2016-05-25] VITALS: Ht 172.7 cm; Wt 52.3 kg
[~2016-05-25 08:54] MED LIST changes: -ADULT TUSS100 MG/5 M PO; -AQUAPHOR OINTM105 GM TP; -ASCORBIC ACID500 M3 GT; -BUDESONIDE0.5 MG/2 M IH; -CEFEPIME HCL1 GM IV; -COLACE10 MG/ML GT; -DUONEB 2.5-0.5 M3 ML AEROSOL; -IRON325 M1 GT; -MELATONIN5 M1 GT; -ORAZINC220 MG GT; -PREDNISONE10 MG GT; -PROSCAR5 MG GT; -PROTONIX40 M1 GT; -SENEXON8.8 MG/5 M GT; -SILVASORB1.5 OZ TP; -ULTRACET1 TABLET GT; -ULTRAM50 MG GT; -VANCOMYCIN HCL500 MG IV; -ZITHROMAX500 MG GT; -ZOFRAN4 MG GT
[2016-05-25 09:14] LABS: BASE EXCESS 4.7 mEq/L (-3 to +3); BICARBONATE 27.1 mEq/L (22-26); CARBOXY HGB 2.5 % (0-5); COMMENTS - BLOOD GASES A+C+; DEVICE COOL AEROSOL; FI02 70 %; O2 FLOW 12 L/MIN; PCO2 31 mm Hg (35-45); PO2 52 mm Hg (80-100); SITE RRA; pH 7.55 (7.35-7.45)
[2016-05-25 09:15] LABS: TOTAL RESP RATE 20 resp/min
[2016-05-25 09:40] LABS: EOSINOPHIL (%) 0.3 % (0-5); IMMATURE GRANULOCYTE (%) 0.3 % (0.0-0.7); IMMATURE GRANULOCYTE COUNT 0.4 K/uL; LYMPHOCYTE COUNT 0.3 K/uL (1.0-2.8); MCH 29.8 PG (29.0-34.0); MCHC 32.5 G/DL (30.0-36.0); MCV 91.8 FL (86-99); MEAN PLAT.VOLUME 9.8 uM^3 (9.0-12.4); MONOCYTE (%) 7.6 % (3-12); MONOCYTE COUNT 1.1 K/uL (0-0.8); NEUTROPHIL (%) 89.4 % (45-76); NEUTROPHIL COUNT 13.2 K/uL (1.8-6.4); PLATELET COUNT 206 K/uL (156-360); RBC DIS.WIDTH-CV 14.9 % (11.8-14.6); RBC DIS.WIDTH-SD 48.5 % (39-53); RED BLOOD COUNT 3.05 M/uL (4.00-5.50)
[2016-05-25 09:41] LABS: WHITE BLOOD COUNT 14.7 K/uL (4.1-10.2)
[2016-05-25 09:47] LABS: INTER. NORMALIZED RATIO 1.1; PROTHROMBIN TIME 11.2 (9.2-11.2); PTT 34.3 (25-32)
[2016-05-25 09:48] LABS: CHLORIDE 99 mEq/L (99-109); POTASSIUM 4.2 mEq/L (3.7-5.4); SODIUM 132 mEq/L (136-147)
[2016-05-25 09:49] LABS: GLUCOSE 129 mg/dL (70-99)
[2016-05-25 09:51] LABS: ANION GAP 10 MEQ/L (2-14)
[2016-05-25 09:53] LABS: GFR ESTIMATE (CALCULATED) > 59 mL/min/
[2016-05-25 09:54] LABS: UREA NITROGEN (BUN) 25 mg/dL (9-23)
[2016-05-25 09:59] LABS: TROP-I INTERPRETATION NEGATIVE; TROPONIN-I 0.01 ng/mL (0.0-0.30)
[2016-05-25] MEDS ORDERED: CEFEPIME HCL1 GM IV (11:23)
[2016-05-25] MEDS ORDERED: VANCOMYCIN HCL500 MG IV (11:26)
[2016-05-25] MEDS ORDERED: ZITHROMAX500 MG GT (11:28)
[2016-05-25] MEDS ORDERED: ATIVAN0.5 MG GT (11:30)
[2016-05-25] MEDS ORDERED: SODIUM CHLORIDE1 G1 PO (11:31)
[2016-05-25] MEDS ORDERED: LOVENOX60 MG/0.6 SC (11:32)
[2016-05-25] MEDS ORDERED: PROSCAR5 MG GT (11:33)
[2016-05-25] MEDS ORDERED: MELATONIN5 M1 GT (11:34)
[2016-05-25] MEDS ORDERED: ORAZINC220 MG GT (11:35)
[2016-05-25] MEDS ORDERED: PROTONIX40 M1 GT (11:36)
[2016-05-25] MEDS ORDERED: ASCORBIC ACID500 M3 GT (11:36)
[2016-05-25] MEDS ORDERED: ZOFRAN4 MG GT (11:37)
[2016-05-25] MEDS ORDERED: ULTRAM50 MG GT (11:39)
[2016-05-25] MEDS ORDERED: PREDNISONE10 MG GT (11:39)
[2016-05-25] MEDS ORDERED: PLAVIX75 MG GT (11:40)
[2016-05-25] MEDS ORDERED: COLACE10 MG/ML GT (11:42)
[2016-05-25] MEDS ORDERED: IRON325 M1 GT (11:44)
[2016-05-25] MEDS ORDERED: SENEXON8.8 MG/5 M GT (11:47)
[2016-05-25] MEDS ORDERED: ULTRACET1 TABLET GT (11:48)
[2016-05-25] MEDS ORDERED: ADULT TUSS100 MG/5 M PO (11:49)
[2016-05-25] MEDS ORDERED: SILVASORB1.5 OZ TP (11:53)
[2016-05-25] MEDS ORDERED: AQUAPHOR OINTM105 GM TP (11:54)
[2016-05-25] MEDS ORDERED: BUDESONIDE0.5 MG/2 M IH (11:55)
[2016-05-25] MEDS ORDERED: DUONEB 2.5-0.5 M3 ML AEROSOL (11:56)
[2016-05-25 16:54] LABS: TROP-I INTERPRETATION NEGATIVE; TROPONIN-I 0.02 ng/mL (0.0-0.30)
[2016-05-25 19:20] VITALS: BP 118/59
[2016-05-25 19:23] VITALS: BP 118/59
[2016-05-25 22:00] VITALS: BP 120/51
[2016-05-25 22:03] LABS: METH RESISTANT S AUREUS PCR NEGATIVE (NEGATIVE)
[2016-05-25 22:06] LABS: TROP-I INTERPRETATION NEGATIVE; TROPONIN-I 0.03 ng/mL (0.0-0.30)
[2016-05-25 22:08] LABS: PROBE CHECK PASS; SPECIMEN PROCESSING CONTROL PASS
[2016-05-26 02:00] VITALS: BP 105/45
[2016-05-26 05:54] LABS: HEMATOCRIT 24.5 % (38.0-50.0); MCH 30.2 PG (29.0-34.0); MCHC 33.1 G/DL (30.0-36.0); MCV 91.4 FL (86-99); MEAN PLAT.VOLUME 10.3 uM^3 (9.0-12.4); PLATELET COUNT 197 K/uL (156-360); RBC DIS.WIDTH-CV 15.1 % (11.8-14.6); RBC DIS.WIDTH-SD 50.5 % (39-53); RED BLOOD COUNT 2.68 M/uL (4.00-5.50); WHITE BLOOD COUNT 10.6 K/uL (4.1-10.2)
[2016-05-26 06:20] LABS: ANION GAP 8 MEQ/L (2-14); CHLORIDE 101 MEQ/L (99-109); GFR ESTIMATE (CALCULATED) > 59 mL/min/; POTASSIUM 3.9 MEQ/L (3.7-5.4); SAMPLE HEMOLYSIS CHECK 0; SAMPLE ICTERIC CHECK 0; SAMPLE LIPEMIA CHECK 0; SODIUM 133 MEQ/L (136-147); UREA NITROGEN (BUN) 24 mg/dL (9-23)
[2016-05-26 06:31] LABS: GLUCOSE 82 mg/dL (70-99)
[2016-05-26 08:00] VITALS: BP 132/46
[2016-05-26 12:00] VITALS: BP 112/46
[2016-05-26 18:00] VITALS: BP 94/62
[2016-05-26 21:00] VITALS: BP 129/57
[2016-05-26 22:00] VITALS: BP 124/51
[2016-05-27] VITALS (8 sets, daily range): BP systolic 92–129; BP diastolic 45–56
[2016-05-27 07:26] LABS: INTERNAL CONTROL VALID? YES
[2016-05-27 08:15] LABS: EOSINOPHIL (%) 0 % (0-5); HEMATOCRIT 26.3 % (38.0-50.0); IMMATURE GRANULOCYTE (%) 0.4 % (0.0-0.7); LYMPHOCYTE COUNT 0.6 K/uL (1.0-2.8); MCH 29.9 PG (29.0-34.0); MCHC 32.7 G/DL (30.0-36.0); MCV 91.3 FL (86-99); MEAN PLAT.VOLUME 10.2 uM^3 (9.0-12.4); MONOCYTE (%) 6.1 % (3-12); MONOCYTE COUNT 0.7 K/uL (0-0.8); NEUTROPHIL COUNT 9.5 K/uL (1.8-6.4); PLATELET COUNT 217 K/uL (156-360); RBC DIS.WIDTH-CV 14.9 % (11.8-14.6); RBC DIS.WIDTH-SD 50.2 % (39-53); RED BLOOD COUNT 2.88 M/uL (4.00-5.50); WHITE BLOOD COUNT 10.8 K/uL (4.1-10.2)
[2016-05-27 08:48] LABS: ANION GAP 8 MEQ/L (2-14); CHLORIDE 104 MEQ/L (99-109); GFR ESTIMATE (CALCULATED) > 59 mL/min/; POTASSIUM 3.8 MEQ/L (3.7-5.4); SAMPLE HEMOLYSIS CHECK 0; SAMPLE ICTERIC CHECK 0; SAMPLE LIPEMIA CHECK 0; SODIUM 136 MEQ/L (136-147); UREA NITROGEN (BUN) 28 mg/dL (9-23)
[2016-05-27 08:50] LABS: GLUCOSE 135 mg/dL (70-99)
[2016-05-28] VITALS: BP 124/48
[2016-05-28 04:00] VITALS: BP 135/49
[2016-05-28 06:45] LABS: EOSINOPHIL (%) 0 % (0-5); HEMATOCRIT 25.3 % (38.0-50.0); IMMATURE GRANULOCYTE (%) 0.9 % (0.0-0.7); IMMATURE GRANULOCYTE COUNT 0.1 K/uL; INSTRUMENT ABS NEUTROPHIL CT 6.2 K/uL; LYMPHOCYTE COUNT 0.4 K/uL (1.0-2.8); MCH 29.6 PG (29.0-34.0); MCHC 31.6 G/DL (30.0-36.0); MCV 93.7 FL (86-99); MEAN PLAT.VOLUME 10.4 uM^3 (9.0-12.4); MONOCYTE (%) 4.9 % (3-12); MONOCYTE COUNT 0.3 K/uL (0-0.8); NEUTROPHIL (%) 88.3 % (45-76); NEUTROPHIL COUNT 6.2 K/uL (1.8-6.4); PLATELET COUNT 216 K/uL (156-360); RBC DIS.WIDTH-CV 14.9 % (11.8-14.6); RBC DIS.WIDTH-SD 51.5 % (39-53)
[2016-05-28 07:09] LABS: ANION GAP 9 MEQ/L (2-14); CHLORIDE 106 MEQ/L (99-109); GFR ESTIMATE (CALCULATED) > 59 mL/min/; GLUCOSE 162 mg/dL (70-99); POTASSIUM 3.9 MEQ/L (3.7-5.4); SAMPLE HEMOLYSIS CHECK 0; SAMPLE ICTERIC CHECK 0; SAMPLE LIPEMIA CHECK 0; SODIUM 137 MEQ/L (136-147); UREA NITROGEN (BUN) 28 mg/dL (9-23)
[2016-05-28 08:00] VITALS: BP 140/46
[2016-05-28 10:00] VITALS: BP 142/62
[2016-05-28 13:00] VITALS: BP 125/55
[2016-05-28] MEDS ORDERED: CEFEPIME HCL1 GM IV (13:12)
== END 2016-05-28 15:25 | disposition designated cancer center or children's hospital (05) | DRG 166 ==
LOC: EME 08:54 → 4WEST 14:21 → EDOF 14:21 → 4WEST 19:09
PROVIDERS: Emergency Medicine; Internal Medicine
PROC: 0JBQ0ZZ Excision of Right Foot Subcutaneous Tissue and Fascia, Open Approach (ICD-10-PCS; principal; 2016-05-26)
DX: J69.0 Pneumonitis due to inhalation of food and vomit (principal); J96.21 Acute and chronic respiratory failure with hypoxia; J44.1 Chronic obstructive pulmonary disease with (acute) exacerbation; E87.1 Hypo-osmolality and hyponatremia; Z68.1 Body mass index [BMI] 19.9 or less, adult; J90 Pleural effusion, not elsewhere classified; L97.519 Non-pressure chronic ulcer of other part of right foot with unspecified severity; L89.150 Pressure ulcer of sacral region, unstageable; L97.529 Non-pressure chronic ulcer of other part of left foot with unspecified severity; I10 Essential (primary) hypertension; D64.9 Anemia, unspecified; I73.9 Peripheral vascular disease, unspecified; M19.90 Unspecified osteoarthritis, unspecified site; Z91.040 Latex allergy status; Z93.1 Gastrostomy status; Z93.0 Tracheostomy status; Z88.0 Allergy status to penicillin; Z87.891 Personal history of nicotine dependence; Z98.62 Peripheral vascular angioplasty status; R63.6 Underweight; Z85.21 Personal history of malignant neoplasm of larynx
CPT/HCPCS: 36600; 71010; 71275; 80048; 80202; 82803; 83880; 84484; 85025; 85027; 85610; 85730; 87040; 87070; 87077; 87081; 87205; 87449; 87641; 93005; 94640; 94640 76; 94667; 94668; 94799; 99202; 99281; 99285; J0692; J1650; J3370; J7030; J7050; J7512

== ENCOUNTER → 2016-06-17 | Outpatient (CLI) | payer OTHER ==
[~2016-06-17] MED LIST changes: +ADULT TUSS100 MG/5 M PO; +AQUAPHOR OINTM105 GM TP; +ASCORBIC ACID500 M3 GT; +BUDESONIDE0.5 MG/2 M IH; +CEFEPIME HCL1 GM IV; +COLACE10 MG/ML GT; +DUONEB 2.5-0.5 M3 ML AEROSOL; +IRON325 M1 GT; +MELATONIN5 M1 GT; +ORAZINC220 MG GT; +PREDNISONE10 MG GT; +PROSCAR5 MG GT; +PROTONIX40 M1 GT; +SENEXON8.8 MG/5 M GT; +SILVASORB1.5 OZ TP; +ULTRACET1 TABLET GT; +ULTRAM50 MG GT; +VANCOMYCIN HCL500 MG IV; +ZITHROMAX500 MG GT; +ZOFRAN4 MG GT
== END | disposition designated cancer center or children's hospital (05) ==
LOC: RAD 14:34
DX: R22.1 Localized swelling, mass and lump, neck (principal); J18.9 Pneumonia, unspecified organism; J44.0 Chronic obstructive pulmonary disease with (acute) lower respiratory infection; Z93.0 Tracheostomy status
CPT/HCPCS: 71250; 94799

== ENCOUNTER 2016-07-04 14:15 | Inpatient (IN) | payer OTHER ==
[~2016-07-04] VITALS: Ht 172.7 cm; Wt 52.7 kg
[2016-07-04 14:58] LABS: EOSINOPHIL (%) 0.2 % (0-5); HEMATOCRIT 26.4 % (38.0-50.0); IMMATURE GRANULOCYTE (%) 0.9 % (0.0-0.7); IMMATURE GRANULOCYTE COUNT 0.1 K/uL; INSTRUMENT ABS NEUTROPHIL CT 8.3 K/uL; LYMPHOCYTE COUNT 0.6 K/uL (1.0-2.8); MCH 28.7 PG (29.0-34.0); MCV 87.1 FL (86-99); MONOCYTE (%) 5.5 % (3-12); MONOCYTE COUNT 0.5 K/uL (0-0.8); NEUTROPHIL (%) 87.4 % (45-76); NEUTROPHIL COUNT 8.3 K/uL (1.8-6.4); RBC DIS.WIDTH-CV 16.1 % (11.8-14.6); RBC DIS.WIDTH-SD 50.5 % (39-53); RED BLOOD COUNT 3.03 M/uL (4.00-5.50); WHITE BLOOD COUNT 9.6 K/uL (4.1-10.2)
[2016-07-04 15:01] LABS: CHLORIDE 98 mEq/L (99-109); POTASSIUM 4.9 mEq/L (3.7-5.4); SODIUM 131 mEq/L (136-147)
[2016-07-04 15:03] LABS: GLUCOSE 105 mg/dL (70-99)
[2016-07-04 15:04] LABS: ANION GAP 8 MEQ/L (2-14)
[2016-07-04 15:07] LABS: GFR ESTIMATE (CALCULATED) > 59 mL/min/
[2016-07-04 15:08] LABS: UREA NITROGEN (BUN) 37 mg/dL (9-23)
[2016-07-04 15:47] LABS: HEMATOLOGY COMMENT 1 SN; IMM.PLATELET FRACTION 5.6 (1-7); PLAT.SUFFICIENCY DECREASED; PLATELET COUNT 18 K/uL (156-360)
[2016-07-04 17:26] LABS: FIBRINOGEN 331 MG/DL (160-450); INTER. NORMALIZED RATIO 1.1; PROTHROMBIN TIME 10.7 (9.2-11.2); PTT 33.2 (25-32)
[2016-07-04 20:52] LABS: HEMATOCRIT 27.6 % (38.0-50.0); MCH 28.6 PG (29.0-34.0); MCHC 32.6 G/DL (30.0-36.0); MCV 87.6 FL (86-99); RBC DIS.WIDTH-CV 16.4 % (11.8-14.6); RBC DIS.WIDTH-SD 50.7 % (39-53); RED BLOOD COUNT 3.15 M/uL (4.00-5.50); WHITE BLOOD COUNT 11.5 K/uL (4.1-10.2)
[2016-07-04 21:30] LABS: HEMATOLOGY COMMENT 1 SN; IMM.PLATELET FRACTION 6.7 (1-7); PLAT.SUFFICIENCY DECREASED
[2016-07-04 21:31] LABS: PLATELET COUNT 17 K/uL (156-360)
[2016-07-04 22:50] VITALS: BP 118/58
[2016-07-05] VITALS (12 sets, daily range): BP systolic 45–145; BP diastolic 56–67
[2016-07-05 06:59] LABS: INTER. NORMALIZED RATIO 1.5; PROTHROMBIN TIME 15.1 (9.2-11.2); PTT 51.8 (25-32)
[2016-07-05 07:10] LABS: MCH 27.8 PG (29.0-34.0); MCHC 30.8 G/DL (30.0-36.0); MCV 90.3 FL (86-99); RBC DIS.WIDTH-CV 16.5 % (11.8-14.6); RBC DIS.WIDTH-SD 52.9 % (39-53); RED BLOOD COUNT 2.77 M/uL (4.00-5.50); WHITE BLOOD COUNT 9.9 K/uL (4.1-10.2)
[2016-07-05 07:12] LABS: ALKALINE PHOSPHATASE 93 IU/L (3-129); ANION GAP 5 MEQ/L (2-14); CHLORIDE 97 MEQ/L (99-109); GFR ESTIMATE (CALCULATED) > 59 mL/min/; GLUCOSE 95 mg/dL (70-99); POTASSIUM 4.5 MEQ/L (3.7-5.4); SAMPLE HEMOLYSIS CHECK 0; SAMPLE ICTERIC CHECK 0; SAMPLE LIPEMIA CHECK 0; SODIUM 132 MEQ/L (136-147); TOTAL BILIRUBIN 1.1 MG/DL (0.0-1.0); UREA NITROGEN (BUN) 34 mg/dL (9-23)
[2016-07-05 08:34] LABS: IMM.PLATELET FRACTION 6.3 (1-7)
[2016-07-05 08:51] LABS: PLAT.SUFFICIENCY VERY DECREASED; PLATELET COUNT 16 K/uL (156-360)
[2016-07-05 13:38] LABS: EOSINOPHIL (%) 0.6 % (0-5); EOSINOPHIL COUNT 0.1 K/uL (0-0.3); HEMATOCRIT 23.9 % (38.0-50.0); IMMATURE GRANULOCYTE (%) 0.7 % (0.0-0.7); IMMATURE GRANULOCYTE COUNT 0.1 K/uL; INSTRUMENT ABS NEUTROPHIL CT 10.9 K/uL; LYMPHOCYTE COUNT 0.5 K/uL (1.0-2.8); MCH 29.1 PG (29.0-34.0); MCHC 32.2 G/DL (30.0-36.0); MCV 90.2 FL (86-99); MONOCYTE (%) 4.2 % (3-12); MONOCYTE COUNT 0.5 K/uL (0-0.8); NEUTROPHIL (%) 90.4 % (45-76); NEUTROPHIL COUNT 10.9 K/uL (1.8-6.4); RBC DIS.WIDTH-CV 16.9 % (11.8-14.6); RBC DIS.WIDTH-SD 53.3 % (39-53); RED BLOOD COUNT 2.65 M/uL (4.00-5.50)
[2016-07-05 14:10] LABS: HEMATOLOGY COMMENT 1 SN; IMM.PLATELET FRACTION 6.7 (1-7); PLAT.SUFFICIENCY VERY DECREASED; PLATELET COUNT 13 K/uL (156-360)
[2016-07-05 20:31] LABS: DIRECT BILIRUBIN 0.3 mg/dL (0.0-0.3)
[2016-07-05 20:37] LABS: ALKALINE PHOSPHATASE 113 IU/L (3-129); LACTATE DEHYDROGENASE 313 IU/L (20-246)
[2016-07-05 20:46] LABS: INTER. NORMALIZED RATIO 1.1; PROTHROMBIN TIME 11.2 (9.2-11.2); PTT 33.2 (25-32)
[2016-07-05 21:38] LABS: D-DIMER LATEX POSITIVE
[2016-07-05 21:50] LABS: FIBRINOGEN 312 MG/DL (160-450)
[2016-07-05 22:16] LABS: SCHISTOCYTES NONE SEEN
[2016-07-05 22:49] LABS: ABSOLUTE RETICULOCYTE CT. 0.1 M/uL (0.02-0.08); IMM.RETIC FRACTION 28.8 % (3-19); RETIC HGB EQUIVALENT 40.5 (28-36); RETICULOCYTE COUNT 4.5 % (0.5-1.8)
[2016-07-06] VITALS (27 sets, daily range): BP systolic 101–142; BP diastolic 46–71
[2016-07-06 01:16] LABS: METH RESISTANT S AUREUS PCR POSITIVE (NEGATIVE)
[2016-07-06 01:31] LABS: PROBE CHECK PASS
[2016-07-06 05:57] LABS: EOSINOPHIL (%) 0 % (0-5); HEMATOCRIT 29.9 % (38.0-50.0); IMMATURE GRANULOCYTE COUNT 0.1 K/uL; INTER. NORMALIZED RATIO 1.1; LYMPHOCYTE COUNT 0.3 K/uL (1.0-2.8); MCH 30.3 PG (29.0-34.0); MCHC 33.4 G/DL (30.0-36.0); MCV 90.6 FL (86-99); MONOCYTE (%) 1.7 % (3-12); MONOCYTE COUNT 0.2 K/uL (0-0.8); NEUTROPHIL (%) 94.9 % (45-76); PROTHROMBIN TIME 11.4 (9.2-11.2); PTT 32.9 (25-32); RBC DIS.WIDTH-CV 16.2 % (11.8-14.6); RBC DIS.WIDTH-SD 52.2 % (39-53); WHITE BLOOD COUNT 12.7 K/uL (4.1-10.2)
[2016-07-06 06:15] LABS: ANION GAP 8 MEQ/L (2-14); CHLORIDE 94 MEQ/L (99-109); GFR ESTIMATE (CALCULATED) > 59 mL/min/; MAGNESIUM 1.6 mg/dl (1.3-2.7); POTASSIUM 4.6 MEQ/L (3.7-5.4); SAMPLE HEMOLYSIS CHECK 0; SAMPLE ICTERIC CHECK 0; SAMPLE LIPEMIA CHECK 0; SODIUM 129 MEQ/L (136-147); UREA NITROGEN (BUN) 33 mg/dL (9-23)
[2016-07-06 06:17] LABS: GLUCOSE 149 mg/dL (70-99)
[2016-07-06 08:08] LABS: IMM.PLATELET FRACTION 7.6 (1-7); PLATELET COUNT 12 K/uL (156-360)
[2016-07-06 12:35] LABS: Heparin Induced Plt Ab Negative (Negative)
[2016-07-06 19:33] LABS: UFH SRA Result Negative (Negative)
[2016-07-07] VITALS (10 sets, daily range): BP systolic 120–138; BP diastolic 49–78
[2016-07-07 04:47] LABS: CHLORIDE 97 mEq/L (99-109); INTER. NORMALIZED RATIO 1.1; POTASSIUM 4.1 mEq/L (3.7-5.4); PROTHROMBIN TIME 10.9 (9.2-11.2); PTT 28.8 (25-32); SODIUM 134 mEq/L (136-147)
[2016-07-07 04:49] LABS: GLUCOSE 119 mg/dL (70-99)
[2016-07-07 04:50] LABS: ANION GAP 9 MEQ/L (2-14)
[2016-07-07 04:51] LABS: TOTAL BILIRUBIN 1.5 mg/dL (0.0-1.0)
[2016-07-07 04:52] LABS: ALKALINE PHOSPHATASE 118 IU/L (3-129)
[2016-07-07 04:53] LABS: GFR ESTIMATE (CALCULATED) > 59 mL/min/
[2016-07-07 04:54] LABS: UREA NITROGEN (BUN) 39 mg/dL (9-23)
[2016-07-07 06:04] LABS: EOSINOPHIL (%) 0 % (0-5); IMMATURE GRANULOCYTE (%) 0.9 % (0.0-0.7); IMMATURE GRANULOCYTE COUNT 0.1 K/uL; INSTRUMENT ABS NEUTROPHIL CT 6.7 K/uL; LYMPHOCYTE COUNT 0.3 K/uL (1.0-2.8); MONOCYTE (%) 5.4 % (3-12); MONOCYTE COUNT 0.4 K/uL (0-0.8); NEUTROPHIL (%) 89.3 % (45-76); NEUTROPHIL COUNT 6.7 K/uL (1.8-6.4)
[2016-07-07 06:12] LABS: HEMATOCRIT 26.2 % (38.0-50.0); IMM.PLATELET FRACTION 11.3 (1-7); MCH 30.8 PG (29.0-34.0); MCV 90.7 FL (86-99); RBC DIS.WIDTH-CV 16.7 % (11.8-14.6); RBC DIS.WIDTH-SD 52.7 % (39-53); RED BLOOD COUNT 2.89 M/uL (4.00-5.50)
[2016-07-07 06:13] LABS: PLAT.SUFFICIENCY VERY DECREASED; WHITE BLOOD COUNT 7.7 K/uL (4.1-10.2)
[2016-07-07 06:14] LABS: PLATELET COUNT 13 K/uL (156-360)
[2016-07-07 07:39] LABS: SAMPLE HEMOLYSIS CHECK 0; SAMPLE ICTERIC CHECK 0; SAMPLE LIPEMIA CHECK 0
[2016-07-07 07:45] LABS: LACTATE DEHYDROGENASE 342 IU/L (20-246)
== END 2016-07-07 13:55 | disposition short-term general hospital (02) | DRG 813 ==
LOC: EME 14:15 → EDOF 16:12 → 4WEST 16:12 → 5EAST 16:12 → 4WEST 07-05 23:50
PROVIDERS: Emergency Medicine; Hospitalist; Internal Medicine; Internal Medicine Medical Oncology
DX: D75.82 Heparin induced thrombocytopenia (HIT) (principal); M31.1 Thrombotic microangiopathy; J18.9 Pneumonia, unspecified organism; L89.150 Pressure ulcer of sacral region, unstageable; J96.10 Chronic respiratory failure, unspecified whether with hypoxia or hypercapnia; I70.269 Atherosclerosis of native arteries of extremities with gangrene, unspecified extremity; N39.0 Urinary tract infection, site not specified; J84.10 Pulmonary fibrosis, unspecified; I51.89 Other ill-defined heart diseases; Z93.0 Tracheostomy status; J44.9 Chronic obstructive pulmonary disease, unspecified; E87.1 Hypo-osmolality and hyponatremia; Z93.1 Gastrostomy status; D53.9 Nutritional anemia, unspecified; I10 Essential (primary) hypertension; Z92.3 Personal history of irradiation; I25.2 Old myocardial infarction; L76.21 Postprocedural hemorrhage of skin and subcutaneous tissue following a dermatologic procedure; Z85.819 Personal history of malignant neoplasm of unspecified site of lip, oral cavity, and pharynx; Z87.891 Personal history of nicotine dependence; K21.9 Gastro-esophageal reflux disease without esophagitis; M19.90 Unspecified osteoarthritis, unspecified site; L98.499 Non-pressure chronic ulcer of skin of other sites with unspecified severity; Z22.322 Carrier or suspected carrier of Methicillin resistant Staphylococcus aureus; Z66 Do not resuscitate
CPT/HCPCS: 71020; 80048; 80053; 80076; 83010 90; 83615; 83735; 85025; 85027; 85045; 85378; 85384; 85610; 85730; 86022 90; 86850; 86860; 86870; 86880; 86900; 86901; 86920; 87081; 87641; 94640 76; 94799; 99202; 99281; 99285; J0456; J0696; J0883; J1652; J2930; J3370; J7030; J7050; J7512; P9016; P9017; S0028